=== PATIENT | male | born 1965 | race Caucasian/White ===

== ENCOUNTER → 2016-06-20 | Outpatient (REF) | payer OTHER ==
[2016-06-20 16:13] LABS: ALBUMIN 3.9 GM/DL (3.2-5.2); ALBUMIN/GLOBULIN RATIO 0.85 (1.00-1.93); ALKALINE PHOSPHATASE 96 U/L (45-117); ALT/SGPT 20 U/L (12-78); ANION GAP 7 MEQ/L (8-16); AST/SGOT 10 U/L (15-37); BILIRUBIN,TOTAL 0.3 MG/DL (0.2-1.0); BLOOD UREA NITROGEN 21 MG/DL (7-18); CALCIUM LEVEL 9.3 MG/DL (8.5-10.1); CARBON DIOXIDE LEVEL 31 MEQ/L (21-32); CHLORIDE LEVEL 102 MEQ/L (98-107); CHOLESTEROL LEVEL 216 MG/DL (<200); GLOMERULAR FILTRATION RATE > 60.0 (>60); GLUCOSE, FASTING 75 MG/DL (70-105); SODIUM LEVEL 140 MEQ/L (136-145); TOTAL PROTEIN 8.5 GM/DL (6.4-8.2); TRIGLYCERIDES LEVEL 326 MG/DL (<150)
== END ==
LOC: M SFHCPLAZ 14:34
PROVIDERS: ATTEND Internal Medicine
DX: I10 Essential (primary) hypertension (principal); E78.00 Pure hypercholesterolemia, unspecified

== ENCOUNTER → 2022-01-16 | Outpatient (CLI) | payer MEDICAID, OTHER ==
[2022-01-16 17:46] LABS: BLOOD UREA NITROGEN 14 MG/DL (7-18); CALCIUM LEVEL 9.1 MG/DL (8.5-10.1); CARBON DIOXIDE LEVEL 29 MEQ/L (21-32); CHLORIDE LEVEL 105 MEQ/L (98-107); CHOLESTEROL LEVEL 227 MG/DL (<200); CREATININE FOR GFR 1.21 MG/DL (0.70-1.30); GLOMERULAR FILTRATION RATE > 60.0 (>56); GLUCOSE, FASTING 91 MG/DL (70-100); HDL CHOLESTEROL 39 MG/DL (>40); LDL CHOLESTEROL 127 MG/DL (<100); NON-HDL-C 188 MG/DL; SODIUM LEVEL 138 MEQ/L (136-145); TRIGLYCERIDES LEVEL 306 MG/DL (<150)
[2022-01-16 19:10] LABS: HEMOGLOBIN A1c 6.1 %
[2022-01-17 11:32] LABS: NT-PRO BNP 19 PG/ML (<125); RHEUMATOID FACTOR QUANT < 10.0 IU/ML (<15.0)
== END ==
LOC: M PLAIMG 15:55
PROVIDERS: ATTEND Family Medicine
DX: R06.09 Other forms of dyspnea (principal)

== ENCOUNTER → 2022-02-05 | Outpatient (CLI) | payer OTHER | LOC: M CARPUL 12:57 | PROVIDERS: ATTEND Family Medicine | DX: R06.09 Other forms of dyspnea (principal) ==

== ENCOUNTER → 2022-02-12 | Outpatient (CLI) | payer OTHER ==
[~2022-02-12] MED LIST: ISOVUE-370 76% 100ML VIAL As Ordered ONE
== END ==
LOC: M RAD 09:36
PROVIDERS: ATTEND Family Medicine
DX: R06.02 Shortness of breath (principal)
CPT/HCPCS: 71260; Q9967

== ENCOUNTER → 2022-03-03 | Outpatient (CLI) | payer OTHER | LOC: M RAD 15:25 | PROVIDERS: ATTEND Family Medicine | DX: M79.89 Other specified soft tissue disorders (principal) ==

== ENCOUNTER 2022-03-31 11:48 | Emergency (ER) | payer OTHER ==
[~2022-03-31] VITALS: Ht 180.3 cm; Wt 90.9 kg
[2022-03-31 11:49] VITALS: BP 135/82
[2022-03-31] MEDS ORDERED: ALBU8.5H (12:23)
[2022-03-31] MEDS ORDERED: ALBU2.5V10 (12:23)
[2022-03-31] MEDS ORDERED: MONT10TA97 (12:23)
[2022-03-31] MEDS ORDERED: ADV500INH (12:23)
[2022-03-31 15:16] VITALS: O2SAT 96
[2022-03-31 15:34] LABS: BASO % 0.3 % (0.0-1.0); EOS % 0.6 % (0.0-3.0); HEMOGLOBIN 15.1 g/dl (13.5-17.5); LYMPH # 0.8 10^3/uL (1.5-5.0); LYMPH % 10.6 % (24.0-44.0); MEAN CORPUSCULAR HGB CONC 30.2 g/dl (32.0-36.5); MEAN CORPUSCULAR VOLUME 92.6 fl (80.0-96.0); NEUTROPHILS # 5.3 10^3/uL (1.5-8.5); NEUTROPHILS % 73.9 % (36.0-66.0); PLATELET COUNT, AUTOMATED 257 10^3/uL (150-450); WHITE BLOOD COUNT 7.1 10^3/uL (4.0-10.0)
[2022-03-31] MEDS ORDERED: NIRMATRELVIR/RITONAVIR CO-PACK (EMERGENCY USE AUTH) PO SCH ×3 (16:00→21:00)
[2022-03-31] MEDS: COMBIVENT RESPIMAT 100-20MCG INHALER 4GM INH SCH ×2 (16:06→16:07)
== END 2022-03-31 17:07 | disposition home or self-care (01) ==
LOC: M ED 11:48
DX: U07.1 COVID-19 (principal); Z20.822 Contact with and (suspected) exposure to COVID-19; J45.909 Unspecified asthma, uncomplicated; Z88.8 Allergy status to other drugs, medicaments and biological substances

== ENCOUNTER → 2022-08-04 | Outpatient (CLI) | payer OTHER ==
[~2022-08-04] MED LIST changes: +ADV500INH; +ALBU2.5V10; +ALBU8.5H; -ISOVUE-370 76% 100ML VIAL As Ordered ONE; +MONT10TA97
== END ==
LOC: M CARPUL 15:17
PROVIDERS: ATTEND Internal Medicine Critical Care Medicine
DX: R06.00 Dyspnea, unspecified (principal)

== ENCOUNTER → 2022-10-03 | Outpatient (CLI) | payer OTHER ==
[2022-10-03 15:17] LABS: BASO # 0.1 10^3/uL (0.0-0.2); BASO % 0.9 % (0.0-1.0); EOS # 0.4 10^3/uL (0.0-0.5); EOS % 4.3 % (0.0-3.0); HEMATOCRIT 47.5 % (42.0-52.0); HEMOGLOBIN 14.8 g/dl (13.5-17.5); LYMPH # 1.4 10^3/uL (1.5-5.0); LYMPH % 15.2 % (24.0-44.0); MEAN CORPUSCULAR HEMOGLOBIN 27.4 pg (27.0-33.0); MEAN CORPUSCULAR HGB CONC 31.2 g/dl (32.0-36.5); MONO # 1.2 10^3/uL (0.0-0.8); NEUTROPHILS # 5.9 10^3/uL (1.5-8.5); NEUTROPHILS % 65.5 % (36.0-66.0); PLATELET COUNT, AUTOMATED 392 10^3/uL (150-450)
[2022-10-03 15:54] LABS: IMMUNOGLOBULIN E 78.4 IU/ML (0-378)
[2022-10-03 15:55] LABS: IMMUNOGLOBULIN G 1434 MG/DL (650-1600); RHEUMATOID FACTOR QUANT < 3.5 IU/ML (<14)
[2022-10-03 15:56] LABS: IMMUNOGLOBULIN M 40.4 MG/DL (50-300)
[2022-10-03 15:59] LABS: IMMUNOGLOBULIN A 256.5 MG/DL (40-350)
== END ==
LOC: M PLALAB 10:58
PROVIDERS: ATTEND Internal Medicine Critical Care Medicine
DX: J47.9 Bronchiectasis, uncomplicated (principal)

== ENCOUNTER → 2022-10-03 | Outpatient (CLI) | payer OTHER ==
[2022-10-03 15:13] LABS: APPEARANCE, URINE MANUAL CLEAR (CLEAR); BILIRUBIN, URINE MANUAL NEGATIVE (NEGATIVE); BLOOD URINE MANUAL NEGATIVE (NEGATIVE); COLOR, URINE MANUAL LT YELLOW (YELLOW); GLUCOSE, URINE (UA) MANUAL NEGATIVE (NEGATIVE); KETONE, URINE MANUAL NEGATIVE (NEGATIVE); LEUKOCYTE ESTERASE, URINE MAN NEGATIVE (NEGATIVE); NITRITE, URINE MANUAL NEGATIVE (NEGATIVE); PH,URINE MAN 5.5 UNITS (5.0 - 7.0); PROTEIN, URINE MANUAL NEGATIVE (NEGATIVE); SPECIFIC GRAVITY,URINE MANUAL 1.015 (1.002-1.035); UROBILINOGEN, URINE MANUAL NORMAL (NORMAL)
[2022-10-03 15:16] LABS: BASO # 0.1 10^3/uL (0.0-0.2); BASO % 0.8 % (0.0-1.0); EOS # 0.4 10^3/uL (0.0-0.5); EOS % 4.7 % (0.0-3.0); HEMATOCRIT 47.8 % (42.0-52.0); HEMOGLOBIN 14.9 g/dl (13.5-17.5); LYMPH # 1.4 10^3/uL (1.5-5.0); LYMPH % 15.7 % (24.0-44.0); MEAN CORPUSCULAR HEMOGLOBIN 27.3 pg (27.0-33.0); MEAN CORPUSCULAR HGB CONC 31.2 g/dl (32.0-36.5); MEAN CORPUSCULAR VOLUME 87.7 fl (80.0-96.0); MONO # 1.1 10^3/uL (0.0-0.8); MONO % 12.2 % (2.0-8.0); NEUTROPHILS % 65.8 % (36.0-66.0); PLATELET COUNT, AUTOMATED 404 10^3/uL (150-450); RED BLOOD COUNT 5.45 10^6/uL (4.30-6.10); WHITE BLOOD COUNT 9.1 10^3/uL (4.0-10.0)
[2022-10-03 15:51] LABS: BLOOD UREA NITROGEN 17 MG/DL (9-23); CALCIUM LEVEL 8.8 MG/DL (8.5-10.1); CARBON DIOXIDE LEVEL 29 MMOL/L (20-31); CHLORIDE LEVEL 104 MMOL/L (98-107); CHOLESTEROL LEVEL 230 MG/DL (<200); CHOLESTEROL RISK RATIO 5.34 (<5); CREATININE FOR GFR 1.23 MG/DL (0.70-1.30); GLOMERULAR FILTRATION RATE > 60.0 (>56); GLUCOSE, FASTING 111 MG/DL (60-100); LDL CHOLESTEROL 147.4 MG/DL (<100); POTASSIUM SERUM 4.3 MMOL/L (3.5-5.1); SODIUM LEVEL 140 MMOL/L (136-145); TRIGLYCERIDES LEVEL 198 MG/DL (<150)
[2022-10-03 15:53] LABS: FREE T4 0.87 NG/DL (0.89-1.76); THYROID STIMULATING HORMONE 3.536 uIU/ML (0.55-4.78)
[2022-10-03 15:54] LABS: CREATININE, URINE 154.5 MG/DL; MAU/CREAT RATIO 3.2 MCG/MG (0.0-30.0)
== END ==
LOC: M PLALAB 11:00
PROVIDERS: ATTEND Family Medicine
DX: R53.83 Other fatigue (principal)

== ENCOUNTER → 2024-11-08 | Outpatient (CLI) | payer OTHER ==
[~2024-11-08] MED LIST changes: -ADV500INH; +ADVA1AER10
[2024-11-08 18:21] LABS: ALT/SGPT 29 U/L (7.0-40); AST/SGOT 23 U/L (<34); CALCIUM LEVEL 9.4 MG/DL (8.5-10.1); CARBON DIOXIDE LEVEL 28 MMOL/L (20-31); CHLORIDE LEVEL 104 MMOL/L (98-107); CHOLESTEROL LEVEL 256 MG/DL (<200); CHOLESTEROL RISK RATIO 6.71 (<5); CREATININE FOR GFR 1.14 MG/DL (0.70-1.30); GLOMERULAR FILTRATION RATE 75.5 (>56); NON-HDL-C 217.9 MG/DL; POTASSIUM SERUM 4.2 MMOL/L (3.5-5.1); SODIUM LEVEL 144 MMOL/L (136-145); TRIGLYCERIDES LEVEL 407 MG/DL (<150)
[2024-11-08 18:52] LABS: MALB URINE SIEMENS 43.0 MG/L
[2024-11-08 18:53] LABS: CREATININE, URINE 192.0 MG/DL; MAU/CREAT RATIO 22.3 MCG/MG (0.0-30.0)
== END ==
LOC: M PLALAB 15:21
PROVIDERS: ATTEND Family Medicine
DX: I10 Essential (primary) hypertension (principal); E78.2 Mixed hyperlipidemia